=== PATIENT | female | born 1965 | race Two or more races ===

== ENCOUNTER 2019-12-27 22:32 | Emergency (ER) | payer MEDICAID ==
[~2019-12-27] VITALS: Ht 167.6 cm; Wt 98.0 kg
[2019-12-28 01:42] LABS: Hemoglobin 8.5 g/dL (12.2-16.2); Mean Corpuscular Hemoglobin 32.7 pg (28.0-32.0)
[2019-12-28 01:44] LABS: Hematocrit 27.2 % (36.0-46.0); Mean Corpuscular Hgb Conc. 31.3 g/dL (32.0-36.0); Mean Corpuscular Volume 104.2 fL (80.0-100.0); Platelet Count (auto) 220 10^3/uL (140-450); Red Blood Cells 2.61 10^6/uL (4.0-5.20); Red Cell Distribution Width 17.3 % (11.8-14.3); White Blood Cell 6.1 10^3/uL (4.4-10.8)
[2019-12-28 01:49] LABS: Basophils % (manual) 0 (0.0-2.0); Blast Cells 0; Metamyelocytes % 0; Myelocytes % 0; Promyelocytes % 0; Reactive Lymphocytes 0
[2019-12-28 02:02] LABS: Albumin 2.6 g/dL (3.4-5.0); Anion Gap 6 (5-15); Blood Urea Nitrogen 12 mg/dL (7-18); Carbon Dioxide 22 mmol/L (21-32); Chloride 107 mmol/L (98-107); Glucose 105 mg/dL (74-106); Potassium 4.5 mmol/L (3.5-5.1); Sodium 135 mmol/L (136-145)
[2019-12-28 02:05] LABS: Alanine Aminotransferase 45 U/L (13-56); Aspartate Aminotransferase 52 U/L (15-37); BUN/Creatinine Ratio 10.3; GFR African American 62 mL/min; GFR Non-African American 51 mL/min
[2019-12-28 02:11] LABS: Alkaline Phosphatase 100 U/L (45-117); Bilirubin, Total 0.3 mg/dL (0.2-1.0); Total Protein 7.2 g/dL (6.4-8.2)
[2019-12-28 02:48] VITALS: BP 153/71
[2019-12-28 04:11] LABS: Urine Bacteria MANY /hpf (None Seen); Urine Blood Negative /uL (Negative); Urine Mucus FEW (None Seen); Urine Specific Gravity 1.019 (1.001-1.035); Urine WBC 65 /hpf (0 - 5)
[2019-12-28 05:22] LABS: Band Neutrophils % (manual) 2; Eosinophils % (manual) 2 (0-7); Lymphocytes % (manual) 12 (10.0-50.0); Monocytes % (manual) 12 (0-12)
== END 2019-12-28 03:50 | disposition home or self-care (01) ==
LOC: ER 22:34
DX: R07.89 Other chest pain (principal); K21.9 Gastro-esophageal reflux disease without esophagitis
CPT/HCPCS: 36415; 36600; 71046; 80053; 81001; 82805; 84484; 85007; 85025; 85027; 93005